=== PATIENT | male | born 1935 | race Caucasian/White ===

== ENCOUNTER 2017-08-11 16:45 | Inpatient (IN) | payer MEDICARE, MEDICAID ==
[2017-08-11] MEDS ORDERED: Sodium Chloride 0.9% 5 ML Syringe FLUSH PRN (17:43)
[2017-08-11] MEDS ORDERED: guaiFENesin/Dextromethorphan 100-10 MG/5 ML Soln 5 ML Cup PO PRN (19:44)
[2017-08-11] MEDS ORDERED: Acetaminophen 325 MG Tab PO PRN (19:44)
[2017-08-11] MEDS: Furosemide 40 MG/4 ML VIAL IVPUSH SCH ×2 (19:47→20:31)
[2017-08-11] MEDS: Potassium Chloride 20 MEQ Tab.ER PO SCH (20:28)
[2017-08-11] MEDS: Gabapentin 100 MG Cap PO SCH (20:28)
[2017-08-11] MEDS: Insulin Detemir 100 Units/ML 3 ML Pen SUBCUT SCH (20:28)
[2017-08-11] MEDS: atorvaSTATin 10 MG Tab PO SCH (20:28)
[2017-08-11] MEDS: Nystatin Ointment 15 GM Tube TOP SCH (20:33)
[2017-08-11] MEDS ORDERED: Nitroglycerin 0.4 MG Tab.SL SL PRN (20:54)
[2017-08-11] MEDS ORDERED: Atropine 0.1 MG/ML 10 ML Syringe IVPUSH PRN (20:54)
[2017-08-11] MEDS ORDERED: Lidocaine 2% 100 MG/5 ML Syringe IVPUSH PRN (20:54)
[2017-08-11] MEDS ORDERED: EPINEPHrine 1:10,000 1 MG/10 ML Syringe IVPUSH PRN (20:54)
[2017-08-12] MEDS: Omeprazole 20 MG Cap.CR PO SCH (06:14)
[2017-08-12] MEDS ORDERED: Metolazone 2.5 MG Tab PO SCH (08:00)
[2017-08-12] MEDS ORDERED: Spironolactone 25 MG Tab PO SCH (09:00)
[2017-08-12] MEDS: Nystatin Ointment 15 GM Tube TOP SCH ×2 (09:12→20:47)
[2017-08-12] MEDS: Furosemide 40 MG/4 ML VIAL IVPUSH SCH ×3 (09:12→20:46)
[2017-08-12] MEDS: Potassium Chloride 20 MEQ Tab.ER PO SCH ×4 (09:12→20:46)
--- NOTE | 2017-08-12 11:49 | PCM.HP ---
H&P History of Present Illness - General Date of Service: 08/12/17 Admit Problem/Dx: Admission Diagnosis/Problem Admission Diagnosis/Problem CHF, Congestive heart failure Source of Information: Patient, Old Records, RN History Limitations: Reports: No Limitations - History of Present Illness Initial Comments - Free Text/Narative: This 81-year-old patient who is a resident of [address] [place] [address] in [facility] was admitted due to exacerbation of CHF. He had been seen in the [facility] due to lower extremity edema and was admitted for diuresing. Patient's weight yesterday [facility] was 254 pounds. - Related Data Allergies/Adverse Reactions: Allergies Allergy/AdvReac Type Severity Reaction Status Date / Time metformin Allergy Cannot Verified 08/11/17 17:53 Remember Penicillins Allergy Cannot Verified 08/11/17 17:53 Remember Home Medications: Home Meds Acetaminophen [Tylenol] 650 mg PO Q4H PRN 08/11/17 [History] Cholecalciferol (Vitamin D3) [Vitamin D3] 5,000 unit PO DAILY 08/11/17 [History] Dextromethorphan/guaiFENesin [Robitussin DM] 5 ml PO QID PRN 08/11/17 [History] Eucalyptus/Menthol [Cough Drops] 1 each MM QID PRN 08/11/17 [History] Ferrous Sulfate 325 mg PO TID 08/11/17 [History] Furosemide [Lasix] 40 mg PO BID 08/11/17 [History] Gabapentin [Neurontin] 200 mg PO BEDTIME 08/11/17 [History] Insulin Glarg,Human.Rec.Analog [Lantus Solostar] 18 unit SUBCUT DAILY@08/11 [History] Metolazone [Zaroxolyn] 2.5 mg PO MOWEFRSA 08/11/17 [History] Nystatin [Nystatin Ointment] 15 gm TOP BID 08/11/17 [History] Omeprazole 20 mg PO Q48H 08/11/17 [History] Potassium Chloride 20 meq PO QID 08/11/17 [History] Rivaroxaban [Xarelto] 15 mg PO DAILY@1800 08/11/17 [History] Spironolactone [Aldactone] 25 mg PO DAILY 08/11/17 [History] atorvaSTATin [Lipitor] 10 mg PO BEDTIME 08/11/17 [History] glipiZIDE [Glucotrol] 5 mg PO DAILY 08/11/17 [History] Past Medical History HEENT History: Reports: Hard of Hearing Cardiovascular History: Reports: Aneurysm, Blood Clots/VTE/DVT, CAD, Heart Failure, Hypertension, Pacemaker Gastrointestinal History: Reports: Other (See Below) Other Gastrointestinal History: dysphagia Genitourinary History: Reports: BPH Musculoskeletal History: Reports: Other (See Below) Other Musculoskeletal History: muscle weakness Neurological History: Reports: Neuropathy, Diabetic Endocrine/Metabolic History: Reports: Diabetes, Type II, Obesity/BMI 30+ Immunologic History: Reports: None Oncologic (Cancer) History: Reports: Other (See Below) Other Oncologic History: skin cancer, unknown kind Dermatologic History: Reports: Other (See Below) Other 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 - Infectious Disease History Infectious Disease History: Reports: Chicken Pox, Influenza, Measles, Mumps - Past Surgical History Cardiovascular Surgical History: Reports: Aneurysm Social & Family History - Tobacco Use Smoking Status *Q: Former Smoker Years of Tobacco use: 30 Packs/Tins Daily: 0.5 Used Tobacco, but Quit: Yes Month/Year Tobacco Last Used: 1961 Tobacco Use Comment: Chewed for 20 yrs, now no tobacco Second Hand Smoke Exposure: No - Caffeine Use Caffeine Use: Reports: Tea - Alcohol Use Days Per Week of Alcohol Use: 6 Number of Drinks Per Day: 1 Total Drinks Per Week: 6 - Recreational Drug Use Recreational Drug Use: No H&P Review of Systems - Review of Systems: Review Of Systems: See Below General: Reports: Weight Gain. Denies: Fever, Night Sweats, Weight Loss HEENT: Reports: No Symptoms Pulmonary: Denies: Shortness of Breath, Wheezing, Cough, Sputum Cardiovascular: Reports: Edema, Blood Pressure Problem. Denies: Orthopnea, PND Gastrointestinal: Reports: No Symptoms Genitourinary: Denies: Incontinence Skin: Reports: No Symptoms Psychiatric: Reports: Confusion Neurological: Reports: Confusion, Weakness Hematologic/Lymphatic: Reports: Easy Bleeding, Easy Bruising Immunologic: Reports: No Symptoms Exam - Exam Exam: See Below - Vital Signs Vital Signs: Last Vital Signs Temp 96.5 F 08/12/17 06:52 Pulse 63 08/12/17 06:52 Resp 20 08/12/17 06:52 BP 107/60 08/12/17 06:52 Pulse Ox 99 08/12/17 06:52 Weight: 248 lb 5 oz - Exam Quality Assessment: DVT Prophylaxis (On Factor Xa Inhibitor). No: Supplemental Oxygen HEENT: Hearing Intact, Normal Nasal Septum, Posterior Pharynx Clear Neck: No: JVD Lungs: Crackles Cardiovascular: Irregular Rhythm. No: Tachycardia GI/Abdominal Exam: Soft (Male) Exam: Deferred Extremities: Pedal Edema (2+ bilateral lower extremity edema pitting). No: Increased Warmth, Mottled Peripheral Pulses: 2+: Radial (L), Radial (R) Skin: Warm, Dry, Intact Neurological: Normal Speech Neuro Extensive - Mental Status: Alert Neuro Extensive - Motor, Sensory, Reflexes: Normal Gait (Pertinent nurses report ) Psychiatric: Alert, Labile Mood - Patient Data Lab Results Last 24 hrs: Laboratory Results - last 24 hr 08/11/17 08/11/17 08/12/17 Range/Units 18:02 20:27 06:59 POC Glucose 99 179 H 100 (74-106) mg/dl Result Diagrams: 08/13/17 07:30 EKG INTERPRETATION EKG Date: 08/11/17 Rhythm: NSR [place]: LAD-Left [place] Deviation P-Wave: Present QRS: RBBB Problem List Initiated/Reviewed/Updated: Yes Orders Last 24hrs: Active Orders 24 hr Category Date Time Status Patient Status [ADT] Routine ADT 08/11/17 17:43 Ordered Blood Glucose Check, Bedside [RC] BIDMEALS Care 08/11/17 17:43 Active Cardiac Monitoring [RC] 0300,0700,1100,1500,1900,2300 Care 08/11/17 17:51 Active Height and Weight [RC] DAILY Care 08/11/17 17:43 Active Intake and Output [RC] 0600,1400,2200 Care 08/11/17 17:46 Active Oxygen Therapy [RC] PRN Care 08/11/17 17:43 Active Peripheral IV Care [RC] 0100,0900,1700 Care 08/11/17 17:48 Active Up ad Yuki [RC] 1400,2200 Care 08/11/17 17:43 Active Vital Signs [RC] 0300,0700,1100,1500,1900,2300 Care 08/11/17 17:43 Active [place] [employer] Diet [DIET] Diet 08/11/17 Dinner Active BASIC METABOLIC PANEL,BMP [CHEM] Timed Lab 08/13/17 05:15 Ordered Acetaminophen [Tylenol] Med 08/11/17 19:44 Active 650 mg PO Q4H PRN Atropine [Atropine 0.1 MG/ML] Med 08/11/17 20:54 Active 0 mg IVPUSH ASDIRECTED PRN Dextromethorphan/guaiFENesin [Robitussin DM] Med 08/11/17 19:44 Active 5 ml PO QID PRN EPINEPHrine [EPINEPHrine 1:10,000] Med 08/11/17 20:54 Active 1 mg IVPUSH ASDIRECTED PRN Furosemide [Lasix] Med 08/11/17 21:00 Active 40 mg IVPUSH TID Gabapentin [Neurontin] Med 08/11/17 21:00 Active 200 mg PO BEDTIME Insulin Detemir [Levemir] Med 08/11/17 20:00 Active 18 unit SUBCUT DAILY@2000 Lidocaine 2% [Xylocaine 2%] Med 08/11/17 20:54 Active 0 mg IVPUSH ASDIRECTED PRN Metolazone [Zaroxolyn] Med 08/12/17 08:00 Active 2.5 mg PO MoWeFrSa@0800 Nitroglycerin [Nitrostat] Med 08/11/17 20:54 Active 0.4 mg SL ASDIRECTED PRN Nystatin [Nystatin Ointment] Med 08/11/17 21:00 Active 0 gm TOP BID Omeprazole Med 08/12/17 07:00 Active 20 mg PO Q48H Potassium Chloride [Klor-Con M20] Med 08/11/17 21:00 Active 20 meq PO QID Rivaroxaban [Xarelto] Med 08/12/17 18:00 Active 15 mg PO DAILY@1800 Sodium Chloride 0.9% [Syrex Flush] Med 08/11/17 17:43 Active 5 ml FLUSH Q8HR PRN Spironolactone [Aldactone] Med 08/12/17 09:00 Active 25 mg PO DAILY atorvaSTATin [Lipitor] Med 08/11/17 21:00 Active 10 mg PO BEDTIME Peripheral IV Insertion Adult [OM.PC] Routine Oth 08/11/17 17:43 Ordered Resuscitation Status Routine Resus Stat 08/11/17 17:43 Ordered Medication Orders Acetaminophen (Tylenol) 650 mg PO Q4H PRN PRN Reason: Pain Last Admin: 08/11/17 20:39 Dose: 650 mg Atorvastatin Calcium (Lipitor) 10 mg PO BEDTIME [facility] Last Admin: 08/11/17 20:28 Dose: 10 mg Atropine Sulfate (Atropine 0.1 Mg/Ml) 0 mg IVPUSH ASDIRECTED PRN PRN Reason: Heart Epinephrine HCl (Epinephrine 1:10,000) 1 mg IVPUSH ASDIRECTED PRN PRN Reason: Heart Furosemide (Lasix) 40 mg IVPUSH TID [facility] Last Admin: 08/12/17 09:12 Dose: 40 mg Admin: 08/11/17 20:31 Dose: Not Given Admin: 08/11/17 19:47 Dose: 40 mg Gabapentin (Neurontin) 200 mg PO BEDTIME [facility] Last Admin: 08/11/17 20:28 Dose: 200 mg Guaifenesin/Phenylephrine HCl (Robitussin Dm) 5 ml PO QID PRN PRN Reason: Cough Insulin Detemir (Levemir) 18 unit SUBCUT DAILY@2000 [facility] Last Admin: 08/11/17 20:28 Dose: 18 units Lidocaine HCl (Xylocaine 2%) 0 mg IVPUSH ASDIRECTED PRN PRN Reason: Heart Metolazone (Zaroxolyn) 2.5 mg PO MoWeFrSa@0800 [facility] Nitroglycerin (Nitrostat) 0.4 mg SL ASDIRECTED PRN PRN Reason: Heart Nystatin (Nystatin Ointment) 0 gm TOP BID [facility] Last Admin: 08/12/17 09:12 Dose: 1 applic Admin: 08/11/17 20:33 Dose: 1 applic Omeprazole (Omeprazole) 20 mg PO Q48H [facility] Last Admin: 08/12/17 06:14 Dose: 20 mg Potassium Chloride (Klor-Con M20) 20 meq PO QID [facility] Last Admin: 08/12/17 09:12 Dose: 20 meq Admin: 08/11/17 20:28 Dose: 20 meq Rivaroxaban (Xarelto) 15 mg PO DAILY@1800 [facility] Sodium Chloride (Syrex Flush) 5 ml FLUSH Q8HR PRN PRN Reason: Keep Vein Open Last Admin: 08/11/17 19:50 Dose: 5 ml Spironolactone (Aldactone) 25 mg PO DAILY [facility] Last Admin: 08/12/17 09:12 Dose: 25 mg Assessment/Plan Comment:: This 81-year-old patient who is a resident of [address] [place] [address] in [facility] was admitted due to exacerbation of CHF. He had been seen in the [facility] due to lower extremity edema and was admitted for diuresing. Patient's weight yesterday [place] was 254 pounds. Pertinent diagnostics upon admission BNP 1800 Troponin normal Electrolytes normal, CXR; no official report from [facility] however viewing it appears CHF component, and no infiltrates EKG, SR, RBBB, RRR, inferior/anterior lateral old infarct, closely similar to previous 2 weeks ago Primary problem, Acute on chronic heart failure, combined diastolic and systolic recent echo no report, however 2016 EF 30-35%, BNP 1800, troponin normal, 6 pound weight loss, -625 mL output, no JVD, crackles lower base, no shortness of breath, lower extremity 2-3+ edema, Alexys wraps, elevation, Chronic problems Atrial fibrillation, chronic, CVR, single-chamber pacemaker placement 2016 factor Xa Xarelto, stable. HLD, Lipitor CAD, no ischemic picture, Dilated cardiomyopathy, Chronic venous insufficiency Pulmonary hypertension per echo 2016 History of cardiac aneurysm repair 1975 Anemia, ROBERT, on iron HTN, Aldactone, monitor electrolyte T2 DM, on insulin, holding glipizide, recent A1c 6.9%, Obesity GERD, PPI Overall plan, continue inpatient stay, Continue with IV diuretics as patient could use more dry now, hold Zaroxolyn, monitor electrolytes and renal indices carefully, he can come off telemetry status, ADA diet however add 2 g sodium
[2017-08-12] MEDS: Rivaroxaban 10 MG Tab PO SCH (17:28)
[2017-08-12] MEDS: Insulin Detemir 100 Units/ML 3 ML Pen SUBCUT SCH (20:43)
[2017-08-12] MEDS: Gabapentin 100 MG Cap PO SCH (20:46)
[2017-08-12] MEDS: atorvaSTATin 10 MG Tab PO SCH (20:48)
[2017-08-13] MEDS: Furosemide 40 MG/4 ML VIAL IVPUSH SCH ×2 (08:48→16:23)
[2017-08-13] MEDS: Nystatin Ointment 15 GM Tube TOP SCH ×2 (08:48→21:02)
[2017-08-13] MEDS: Potassium Chloride 20 MEQ Tab.ER PO SCH ×2 (10:42→16:23)
--- NOTE | 2017-08-13 10:48 | PCM.PN ---
- General Info Date of Service: 08/13/17 Functional Status: Reports: Pain Controlled, Tolerating Diet. Denies: New Symptoms - Review of Systems General: Denies: Fever, Weakness, Fatigue HEENT: Reports: No Symptoms Pulmonary: Reports: No Symptoms Cardiovascular: Reports: No Symptoms Gastrointestinal: Reports: No Symptoms Genitourinary: Reports: No Symptoms Neurological: Denies: Confusion Psychiatric: Reports: No Symptoms - Patient Data Vitals - Most Recent: Last Vital Signs Temp 97.3 F 08/13/17 06:53 Pulse 65 08/13/17 06:53 Resp 18 08/13/17 06:53 BP 128/67 08/13/17 06:53 Pulse Ox 98 08/13/17 06:53 Weight - Most Recent: 249 lb 4 oz I&O - Last 24 Hours: Intake & Output 08/12/17 08/13/17 08/13/17 22:59 06:59 14:59 Intake Total 650 0 Output Total 775 675 Balance -125 -675 Lab Results Last 24 Hours: Laboratory Results - last 24 hr 08/12/17 08/13/17 08/13/17 Range/Units 20:39 06:31 07:30 Sodium 137 (136-145) mmol/L Potassium 5.6 H (3.3-5.3) mmol/L Chloride 99 (98-115) mmol/L Carbon Dioxide 30.3 (21.0-32.0) mmol/L BUN 31 H (6-25) mg/dL Creatinine 1.37 H (0.51-1.17) mg/dL Est Cr Clr Drug Dosing 36.87 mL/min Estimated GFR (MDRD) 50 mL/min Glucose 80 (70-110) mg/dL POC Glucose 236 H 79 (74-106) mg/dl Calcium 9.4 (8.7-10.3) mg/dL Med Orders - Current: Current Medications Acetaminophen (Tylenol) 650 mg PO Q4H PRN PRN Reason: Pain Last Admin: 08/11/17 20:39 Dose: 650 mg Atorvastatin Calcium (Lipitor) 10 mg PO BEDTIME [facility] Last Admin: 08/12/17 20:48 Dose: 10 mg Furosemide (Lasix) 40 mg IVPUSH TID [facility] Last Admin: 08/13/17 08:48 Dose: 40 mg Gabapentin (Neurontin) 200 mg PO BEDTIME [facility] Last Admin: 08/12/17 20:46 Dose: 200 mg Guaifenesin/Phenylephrine HCl (Robitussin Dm) 5 ml PO QID PRN PRN Reason: Cough Insulin Detemir (Levemir) 18 unit SUBCUT DAILY@2000 [facility] Last Admin: 08/12/17 20:43 Dose: 18 units Metolazone (Zaroxolyn) 2.5 mg PO MoWeFrSa@0800 [facility] Last Admin: 08/12/17 11:57 Dose: Not Given Nystatin (Nystatin Ointment) 0 gm TOP BID [facility] Last Admin: 08/13/17 08:48 Dose: 1 applic Omeprazole (Omeprazole) 20 mg PO Q48H [facility] Last Admin: 08/12/17 06:14 Dose: 20 mg Potassium Chloride (Klor-Con M20) 20 meq PO QID [facility] Last Admin: 08/12/17 20:46 Dose: 20 meq Rivaroxaban (Xarelto) 15 mg PO DAILY@1800 [facility] Last Admin: 08/12/17 17:28 Dose: 15 mg Sodium Chloride (Syrex Flush) 5 ml FLUSH Q8HR PRN PRN Reason: Keep Vein Open Last Admin: 08/11/17 19:50 Dose: 5 ml Spironolactone (Aldactone) 25 mg PO DAILY [facility] Last Admin: 08/12/17 09:12 Dose: 25 mg Discontinued Medications Atropine Sulfate (Atropine 0.1 Mg/Ml) 0 mg IVPUSH ASDIRECTED PRN PRN Reason: Heart Epinephrine HCl (Epinephrine 1:10,000) 1 mg IVPUSH ASDIRECTED PRN PRN Reason: Heart Lidocaine HCl (Xylocaine 2%) 0 mg IVPUSH ASDIRECTED PRN PRN Reason: Heart Nitroglycerin (Nitrostat) 0.4 mg SL ASDIRECTED PRN PRN Reason: Heart - Exam Quality Assessment: No: Supplemental Oxygen General: Alert, Oriented, Cooperative, No Acute Distress Neck: No JVD Lungs: Crackles (Much less crackles lower bases) Cardiovascular: Regular Rate, Regular Rhythm Extremities: Pedal Edema (2+ pedal edema BLE) Psy/Mental Status: Alert, Normal Affect, Normal Mood - Problem List Review Problem List Initiated/Reviewed/Updated: Yes - My Orders Last 24 Hours: My Active Orders 08/12/17 12:12 Discontinue Telemetry Monitoring [Cardiac Monitoring Discontinue] [RC] Click to Edit 08/12/17 14:18 Blood Glucose Check, Bedside [RC] 0730,199908/12/17 18:00 Rivaroxaban [Xarelto] 15 mg PO DAILY@1800 08/12/17 Lunch 2 Gram Sodium Diet [DIET] - Plan Plan:: This 81-year-old patient who is a resident of [address] [place] [address] in [facility] was admitted due to exacerbation of CHF. He had been seen in the [facility] due to lower extremity edema and was admitted for diuresing. Patient's weight yesterday [place] [facility] was 254 pounds. Pertinent diagnostics upon admission BNP 1800 Troponin normal Electrolytes normal, CXR; no official report from [facility] however viewing it appears CHF component, and no infiltrates EKG, SR, RBBB, RRR, inferior/anterior lateral old infarct, closely similar to previous 2 weeks ago Primary problem, Acute on chronic heart failure, combined diastolic and systolic recent echo no report, however 2015 EF 30-35%, BNP 1800, troponin normal, 6 pound weight loss, -1525 mL output past 24 hours (>2100 since admission) no JVD, much less crackles lower base, no shortness of breath, lower extremity 2+ edema, Alexys wraps , elevation. Hyperkalemia, mild 5.6, hold Aldactone and Reduce K replacement from TID to daily 20 mEq Chronic problems Atrial fibrillation, chronic, CVR, single-chamber pacemaker placement 2016, factor Xa Xarelto, stable. HLD, Lipitor CAD, no ischemic picture, Dilated cardiomyopathy, Chronic venous insufficiency Pulmonary hypertension per echo 2016 cardiac aneurysm repair 1975 Anemia, ROBERT, on iron HTN, holding Aldactone, monitor electrolyte T2 DM, on insulin, holding glipizide, recent A1c 6.9%, consider discontinuing glipizide outpatient Obesity, respiratory along with disuse edema GERD, PPI Overall plan, continue inpatient stay, reduce Lasix to 40 twice a day, reduce potassium supplementation to daily while holding Aldactone, as patient could use more drying out, hold Zaroxolyn, monitor electrolytes and renal indices carefully, off telemetry status, ADA diet, 2 g sodium, lower extremity elevation and wrapping.
[2017-08-13] MEDS: Rivaroxaban 10 MG Tab PO SCH (18:52)
[2017-08-13] MEDS: Insulin Detemir 100 Units/ML 3 ML Pen SUBCUT SCH (20:01)
[2017-08-13] MEDS: Gabapentin 100 MG Cap PO SCH (21:06)
[2017-08-13] MEDS: atorvaSTATin 10 MG Tab PO SCH (21:06)
[2017-08-14] MEDS: Omeprazole 20 MG Cap.CR PO SCH (06:14)
[2017-08-14] MEDS: Nystatin Ointment 15 GM Tube TOP SCH (08:29)
[2017-08-14] MEDS: Furosemide 40 MG/4 ML VIAL IVPUSH SCH (08:29)
[2017-08-14] MEDS: Potassium Chloride 20 MEQ Tab.ER PO SCH (08:40)
--- NOTE | 2017-08-15 09:09 | DISCH ---
FINAL DIAGNOSIS: Acute on chronic heart failure, combined diastolic and systolic. OTHER CHRONIC PROBLEMS: 1. Atrial fibrillation, chronic. Controlled ventricular response, single- chamber pacemaker placed in 2016. He is on Factor Xa inhibitor. 2. Hyperlipidemia, is on Lipitor. 3. Coronary artery disease, no ischemic picture. 4. Dilated cardiomyopathy. 5. Chronic venous insufficiency with disuse edema. 6. Pulmonary hypertension. 7. History of cardiac aneurysm repair. 8. Iron deficiency anemia. 9. Hypertension. 10.Type 2 diabetes, we discontinued glipizide, A1c 6.9%. 11.Obesity. 12.Gastroesophageal reflux disease. BRIEF HISTORY: This 81-year-old resident of [facility] was admitted due to exacerbation of congestive heart failure. He had been seen in [facility] due to lower extremity edema and was admitted for diuresing. HOSPITAL COURSE: The patient's hospital course went quite well. He responded to increase in IV diuresing by having significant output, although his weight did not vacillate much, very doubtful regarding the accuracy of scales here in hospital. However, overall, he had diuresed a total of 3500 mL. His weight on discharge was 249 pounds, although inaccurate scale here, appears about a 6- pound weight loss if you compare same day weight in Outpatient Clinic to discharge weight from hospital. The patient did have slightly elevated potassium of 5.6, on discharge was 5.0. I decreased his potassium to daily here, held his Aldactone, placed on 2 g sodium diet. He diuresed well. He had much less edema in his lower extremities, much less edema in his hands. His extremities were elevated. He never became hemodynamically unstable. He had much less crackles in his lower base. No shortness of breath. He still has 1+ edema in lower extremities, however, this is much improved. His electrolytes were monitored. I held his Zaroxolyn. He was on telemetry for first 24 hours, that was eventually discontinued. PHYSICAL EXAMINATION ON DISCHARGE: VITAL SIGNS: Weight 149 pounds. Temperature is 97, blood pressure 136/59, heart rate 68, respiratory rate 18, O2 sat is 97%. PULMONARY: Some fine crackles, right lower base, however, much improved. CARDIOVASCULAR: Irregular rate, however, controlled rhythm. LOWER EXTREMITIES: 1+ edema, more improved on his right than left. Alxeys bandages are applied. Much less edema in his hands. LABORATORY DATA ON DISCHARGE: Sodium 137, potassium 5.0, BUN 31, creatinine 1.22, glucose 127, calcium 9.2. BNP improved from 1800 on admission, down to 1280 on discharge. Troponin normal. Chest x-ray, no official report yet, however, appears CHF component with no infiltrates on initial wet read. EKG, sinus rhythm, with right bundle-branch block. Inferior, anterior, and lateral old infarct closely similar to EKG previously two weeks ago. MEDICATION ADJUSTMENTS: Potassium will be decreased to b.i.d. from q.i.d. Continue Aldactone. Lasix will be slightly increased from 40 b.i.d. on home medications to 60 a.m. and 40 p.m. Continue Zaroxolyn. Discontinue glipizide. CONDITION TREATMENT AND FINAL DISPOSITION: The patient will be discharged back to long-term care. He has made significant progress. I do not feel he is at his dry weight yet; however, he can be treated with ongoing p.o. increased Lasix. He will have to have his electrolytes monitored this week, BMP this week. Will be seen on rounds this week with a provider. Place on 1800 low- sodium diet. /[id number]/MODL
== END 2017-08-14 13:05 | DRG 292 ==
LOC: KA.MS 16:45 → UNDODISIN 08-14 13:05
PROVIDERS: ADMIT Internal Medicine; ATTEND Internal Medicine
DX: I50.43 Acute on chronic combined systolic (congestive) and diastolic (congestive) heart failure (principal); I42.0 Dilated cardiomyopathy; I48.2 Chronic atrial fibrillation; E78.5 Hyperlipidemia, unspecified; I25.10 Atherosclerotic heart disease of native coronary artery without angina pectoris; I87.2 Venous insufficiency (chronic) (peripheral); I27.20 Pulmonary hypertension, unspecified; D50.9 Iron deficiency anemia, unspecified; I10 Essential (primary) hypertension; K21.9 Gastro-esophageal reflux disease without esophagitis; E66.9 Obesity, unspecified; E11.40 Type 2 diabetes mellitus with diabetic neuropathy, unspecified; Z88.0 Allergy status to penicillin; Z88.8 Allergy status to other drugs, medicaments and biological substances; Z79.899 Other long term (current) drug therapy; Z79.4 Long term (current) use of insulin; Z85.828 Personal history of other malignant neoplasm of skin; Z98.890 Other specified postprocedural states; Z87.891 Personal history of nicotine dependence
CPT/HCPCS: 36415; 80048; 82962; 83880; 93005; A9270-GY; J1815-GY; J1940